=== PATIENT | female | born 1945 | race Caucasian/White ===

== ENCOUNTER → 2025-01-16 | Outpatient (CLI) | payer MEDICARE, BC ==
--- NOTE | 2025-01-16 11:08 | XR ---
EXAMINATION TYPE: XR ribs LT w pa chest xray DATE OF EXAM: 01/16/2025 10:38 AM COMPARISON: None. 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 FINDINGS: The lungs are clear. No Evidence for pneumothorax. No evidence for focal contusion. Mediastinal st ructures are midline. Evaluation of the ribs demonstrates fractures of left ribs 9 and 10 without si gnificant displacement. IMPRESSION: Fractures of left ribs 9 and 10 without significant displacement. [facility], , 01/16/2025 11:06 AM
== END | disposition home or self-care (01) ==
LOC: RADXRMAIN 10:00
PROVIDERS: ATTEND Internal Medicine
DX: S22.42XA Multiple fractures of ribs, left side, initial encounter for closed fracture (principal); X58.XXXA Exposure to other specified factors, initial encounter